=== PATIENT | male | born 1960 | race Caucasian/White ===

== ENCOUNTER → 2020-09-08 17:19 | Outpatient (CLI) | payer OTHER, SELFPAY | DX: Z20.828 Contact with and (suspected) exposure to other viral communicable diseases (principal) | CPT/HCPCS: 87635; C9803; U0003 ==

== ENCOUNTER → 2020-09-28 09:57 | Outpatient (CLI) | payer OTHER, SELFPAY | DX: R43.0 Anosmia (principal); R05 Cough | CPT/HCPCS: 87635; C9803; U0003 ==

== ENCOUNTER → 2021-10-27 13:08 | Outpatient (CLI) | payer OTHER, SELFPAY | PROVIDERS: Referring Provider Physician Assistant Medical; Visit Provider Physician Assistant Medical | DX: Z11.52 Encounter for screening for COVID-19 (principal) | CPT/HCPCS: 87635; U0005; U0003 ==